=== PATIENT | male | born 1985 | race Caucasian/White ===

== ENCOUNTER 2024-09-17 10:26 | Emergency (ER) | payer OTHER, SELFPAY ==
--- NOTE | ~2024-09-17 | XR_ITS ---
XR ankle RT min 3V Ordering provider: NONSTAFF PHYSICIAN NOT ON STAFF History: . ankle CHILDHOOD FX W/RECENT HIT TO HARDWARE SITE/HEMATOMA . Comparison: None. FINDINGS: BONES: No definite acute fracture or dislocation. Possible old fracture in the lateral aspects of the distal tibia is not excluded. Postoperative changes in the medial malleolus. JOINT SPACES: Normal. SOFT TISSUES: Normal. IMPRESSION: No definite acute osseous abnormality of the right ankle. Reviewed, dictated and finalized at location A. [facility]
[2024-09-17 10:29] VITALS: BP 188/106; PULSE 107; RESP 16; TEMP 36.4; O2SAT 98
--- NOTE | 2024-09-17 12:35 | ED.LOWEXIN ---
HPI - Extremity Injury (Lower) General Chief Complaint: Extremity Injury, Lower Stated Complaint: right ankle injury Time Seen by Provider: 09/17/24 11:13 History of Present Illness HPI Narrative: 38-year-old male presents to the emergency department for evaluation of right ankle pain. He was playing baseball at [place] when he had a ball hit his right ankle. He is previous hardware in that right ankle but no restricted range of motion. He states he is able to bear weight but is painful. No weakness or neuropathy. No sensory deficits. There is a small hematoma over the anterior lateral aspect of his right ankle. No obvious fracture deformities. Has not taking anything for pain prior to arrival. Otherwise was in his normal state of health. Denies any other injuries. Review of Systems Review of Systems: As reviewed above in HPI Exam Narrative: GENERAL: [Well-appearing, well-nourished, and in no acute distress.] HEAD: [Normocephalic, atraumatic.] EYES: [PERRLA and EOMI.] ENT: Nares clear, no rhinorrhea or epistaxis. Mucous membranes moist. NECK: Supple. CHEST: [Clear to auscultation. No respiratory distress.] HEART: [Regular rate and rhythm]. No murmur heard. [Normal peripheral pulses.] ABDOMEN: [Soft, nondistended], [nontender], [No rigidity or guarding] EXTREMITIES: The right lower extremity has some mild swelling and appreciable bruising to the anterior medial aspect of his right medial malleolus. Range of motion is not restricted, is able to bear weight. Warm extremity. No obvious step-offs or forming SKIN: Warm, dry, no rash. NEURO: [No focal deficits]. Alert and oriented [x3.] PSYCH: [Normal mood and affect.] Course Vital Signs Vital signs: Vital Signs Temperature 36.4 C 09/17/24 10:29 Pulse Rate 107 H 09/17/24 10:29 Respiratory Rate 16 09/17/24 10:29 Blood Pressure 188/106 H 09/17/24 10:29 Pulse Oximetry 98 09/17/24 10:29 Oxygen Delivery Room Air 09/17/24 10:29 Temperature 36.4 C 09/17/24 10:29 Pulse Rate 107 H 09/17/24 10:29 Respiratory Rate 16 09/17/24 10:29 Blood Pressure 188/106 H 09/17/24 10:29 Pulse Oximetry 98 09/17/24 10:29 Oxygen Delivery Room Air 09/17/24 10:29 MDM - Extremity Injury (Lower) MDM Narrative Medical decision making narrative: 38-year-old male presenting for ankle injury. Patient was playing baseball yesterday and had an ankle injury where a baseball hit his right ankle. He has moderate swelling and bruising to his medial malleolus, no restricted range of motion but he does have a previous surgical scar there from a fusion. Able to bear weight. Not any acute distress, otherwise appears comfortable. X-rays were obtained and independently reviewed. There is no acute fractures. He is able to bear weight but was provided Jeffrey wrap and crutches for assistance as it is painful. He was given Naprosyn here in the emergency department and stable for discharge home at this time with instructions on rest, ice, compression and elevation as well as Tylenol and ibuprofen for residual pain and swelling. He will follow up with regular primary care provider on outpatient basis or return with any new or worsening concerns. Medical Records Attestation: I reviewed the patient's medical records. Imaging Data Attestation: I personally reviewed and interpreted this imaging study as follows: My impression: Impressions Ankle X-Ray 09/17/24 10:49 IMPRESSION: No definite acute osseous abnormality of the right ankle. Discharge Plan Discharge Clinical Impression: Ankle sprain and strain Patient Disposition: Home, Self-Care Condition: Stable Instructions: Antibiotic Form Additional Instructions: Rest ice heat compression and elevation. Tylenol and ibuprofen for pain, compression and crutches for ambulation assistance. Follow-up with regular doctor outpatient. No acute fractures. Patient Language: B[place] Follow-up/Referrals: UNKNOWN,DOCTOR [Primary Care Provider] - Time of Disposition: 12:34
[2024-09-17] MEDS: NAPROXEN 500 MG TABLET PO (12:41)
--- NOTE | 2024-09-17 12:57 | PC.NURSE ---
carlos skinner from [place] given report on the patient
== END 2024-09-17 12:56 | disposition home or self-care (01) ==
PROVIDERS: Emergency Provider Student in an Organized Health Care Education/Training Program
DX: S93.401A Sprain of unspecified ligament of right ankle, initial encounter (principal); W21.03XA Struck by baseball, initial encounter
CPT/HCPCS: 73610; 99283; A9270